=== PATIENT | female | born 1940 | race Caucasian/White ===

== ENCOUNTER 2019-02-25 18:00 | Emergency (ER) | payer SELFPAY ==
[2019-02-25 18:22] VITALS: BMI 43.9
[2019-02-25 20:02] LABS: BASO # 0.1 K/uL (0.0-0.2); BASO % 0.9 % (0.0-2.0); EOS # 0.2 K/uL (0.0-0.7); EOS % 2.9 % (0.0-4.0); HEMOGLOBIN 14.6 g/dL (11.0-16.0); LYMPH # 2.3 K/uL (1.0-4.3); LYMPH % 37.2 % (20.0-40.0); MEAN CELL VOLUME 94.2 fL (81.0-99.0); MEAN CORPUSCULAR HEMOGLOBIN 30.8 pg (27.0-31.0); MEAN CORPUSCULAR HGB CONC 32.7 g/dL (33.0-37.0); MEAN PLATELET VOLUME 11.9 fL (7.2-11.7); MONO # 0.3 K/uL (0.0-0.8); MONO % 5.2 % (0.0-10.0); NEUT # 3.4 K/uL (1.8-7.0); NEUT % 53.8 % (50.0-75.0); NRBC % 0.1 % (0.0-2.0); RBC 4.72 Mil/uL (3.80-5.20); RED CELL DISTRIBUTION WIDTH 15.3 % (11.5-14.5); WHITE BLOOD COUNT 6.2 K/uL (4.8-10.8)
[2019-02-25 20:19] LABS: URINE BACTERIA RARE (<OCC); URINE BILIRUBIN NEGATIVE (NEGATIVE); URINE BLOOD NEGATIVE (NEGATIVE); URINE CLARITY Clear (Clear); URINE COLOR Yellow (YELLOW); URINE GLUCOSE (UA) NORMAL (Normal); URINE LEUKOCYTE ESTERASE NEG Leu/uL (Negative); URINE PROTEIN NEGATIVE (NEGATIVE)
[2019-02-25 20:22] LABS: ALB/GLOB RATIO 1.3 (1.0-2.1); ALBUMIN 4.5 g/dL (3.5-5.0); ALT/SGPT 37 U/L (9-52); AST/SGOT 43 U/L (14-36); BLOOD UREA NITROGEN 15 mg/dL (7-17); CALCIUM 9.5 mg/dl (8.6-10.4); GFR NON-AFRICAN AMERICAN > 60
[2019-02-25 20:45] LABS: B-TYPE NATRIURETIC PEPTIDE 45.2 pg/mL (0-900)
[2019-02-25 20:53] VITALS: O2SAT 95
--- NOTE | 2019-02-25 21:06 | C.PDOC ---
History Of Present Illness Patient is a 78 year old female, who presents to the ED with her sister for evaluation of 2 episodes of vomiting that began earlier today. Patient reports persistent lower extremity edema. Patient is known to have borderline diabetes with no known home medications. Patient is a clinic patient. She denies any CP, SOB, diarrhea. Time Seen by Provider: 02/25/19 19:14 Chief Complaint (Nursing): GI Problem History Per: Patient History/Exam Limitations: no limitations Onset/Duration Of Symptoms: Hrs Current Symptoms Are (Timing): Still Present Recent travel outside of the [place]: No Additional History Per: Patient Past Medical History Reviewed: Historical Data, Nursing Documentation, Vital Signs Vital Signs: Last Vital Signs Temp 97.9 F 02/25/19 18:22 Pulse 78 02/25/19 20:52 Resp 18 02/25/19 20:52 BP 168/80 H 02/25/19 20:52 Pulse Ox 95 02/25/19 20:52 Primary Care Provider: FAMILY PROVIDER,NO - Medical History PMH: No Chronic Diseases Surgical History: No Surg Hx - [facility] Procedures REPLAC M/S IMMOB DEV NEC (03/08/13) Family History: States: No Known Family Hx - Social History Hx Alcohol Use: No Hx Substance Use: No - Immunization History Hx Tetanus Toxoid Vaccination: No Hx Influenza Vaccination: No Hx Pneumococcal Vaccination: No Review Of Systems Cardiovascular: Negative for: Chest Pain Gastrointestinal: Positive for: Vomiting. Negative for: Diarrhea Physical Exam - Physical Exam Appears: Non-toxic, No Acute Distress, Other (elderly female ) Skin: Warm, Dry Head: Atraumatic, Normacephalic Eye(s): bilateral: Other (right eye post-surgical, left eye normal) Oral Mucosa: Moist Neck: Normal ROM, Supple, No Other (JVD) Chest: Symmetrical Cardiovascular: Rhythm Regular, No Murmur Respiratory: Normal Breath Sounds, No Rales, No Rhonchi, No Wheezing Gastrointestinal/Abdominal: Soft, No Tenderness Extremity: Pedal Edema (2/4 pitting edema of lower extremities symmetrical. good peripheral pulses) Neurological/Psych: Oriented x3 ED Course And Treatment - Laboratory Results Result Diagrams: 02/25/19 19:53 02/25/19 19:53 Lab Results: Troponin I < 0.0120 ng/mL (0.00-0.120) 05/03/19 19:53 NT-Pro-B Natriuret Pep 45.2 pg/mL (0-900) 02/25/19 19:53 Total Bilirubin 0.6 mg/dL (0.2-1.3) 02/25/19 19:53 AST 43 U/L (14-36) H 02/25/19 19:53 ALT 37 U/L (9-52) 02/25/19 19:53 Alkaline Phosphatase 112 U/L (38-126) 02/25/19 19:53 Total Protein 8.1 g/dL (6.3-8.3) 02/25/19 19:53 Albumin 4.5 g/dL (3.5-5.0) 02/25/19 19:53 Globulin 3.6 gm/dL (2.2-3.9) 02/25/19 19:53 Albumin/Globulin Ratio 1.3 (1.0-2.1) 02/25/19 19:53 Urine Color Yellow (YELLOW) 02/25/19 19:53 Urine Clarity Clear (Clear) 02/25/19 19:53 Urine pH 5.0 (5.0-8.0) 02/25/19 19:53 Ur Specific Fifty Six 1.024 (1.003-1.030) 02/25/19 19:53 Urine Protein Negative mg/dL (NEGATIVE) 02/25/19 19:53 Urine Glucose (UA) Normal mg/dL (Normal) 02/25/19 19:53 Urine Ketones Negative mg/dL (NEGATIVE) 02/25/19 19:53 Urine Blood Negative (NEGATIVE) 02/25/19 19:53 Urine Nitrate Negative (NEGATIVE) 02/25/19 19:53 Urine Bilirubin Negative (NEGATIVE) 02/25/19 19:53 Urine Urobilinogen 2.0 mg/dL (0.2-1.0) H 02/25/19 19:53 Ur Leukocyte Esterase Neg Kirk/uL (Negative) 02/25/19 19:53 Urine WBC (Auto) 1 /hpf (0-5) 02/25/19 19:53 Urine RBC (Auto) < 1 /hpf (0-3) 02/25/19 19:53 Urine Bacteria Rare (<OCC) 02/25/19 19:53 Lab Interpretation: Normal (ua neg, trop/bnp neg) ECG: Interpreted By Me ECG Rhythm: Sinus Rhythm ECG Interpretation: Normal Rate From EC O2 Sat by Pulse Oximetry: 95 Pulse Ox Interpretation: Normal - Radiology CXR: Interpreted by Me CXR Interpretation: Yes: No Acute Disease Medical Decision Making Medical Decision Making: Plan: UA Labs EKG CXR Norvasc 5mg PO Pepcid 20mg IVP Lasix 20mg IVP Zofran 4mg IVP mild HTN no prior HTN meds start Norvasc 5 daily DM no prior meds glu 176 consider diet changes and opt f/u for meds PRN no new DM meds n/v relieved in ED normal eval ? viral no further tx required now Disposition Doctor Will See Patient In The: Office Counseled Patient/Family Regarding: Studies Performed, Diagnosis - Disposition Referrals: [facility] [Outside] [facility] [Outside] [facility] [Outside] [facility] [Outside] Disposition: HOME/ ROUTINE Disposition Time: 21:05 Condition: GOOD Additional Instructions: sigue Norvasc 5 mg diario para la pression lizzeth Sigue en la Clinica Diabetes: glucosa 176 (elevada moderada) Dieta diabetico NO hay medicamentos nuevos ahora. Sigue con la Clinica [place] para hacer rick Prescriptions: amLODIPine [Norvasc] 5 mg PO DAILY #30 tab Instructions: High Blood Pressure in Adults, Hyperglycemia, Adult Forms: [facility] (Arabic) Print Language: MOROCCAN - Clinical Impression Clinical Impression: Hypertension - Scribe Statement The provider has reviewed the documentation as recorded by the Scribrobel Balderas All medical record entries made by the Scribe were at my direction and personally dictated by me. I have reviewed the chart and agree that the record accurately reflects my personal performance of the history, physical exam, medical decision making, and the department course for this patient. I have also personally directed, reviewed, and agree with the discharge instructions and disposition.
[2019-02-25 21:50] VITALS: BP 156/88; PULSE 88; RESP 16; TEMP 98.7
--- NOTE | 2019-02-26 15:04 | RAD ---
Date of service: 02/25/2019 PROCEDURE: CHEST RADIOGRAPH, 1 VIEW HISTORY: SOB COMPARISON: Comparison is made with 01/31/2013 FINDINGS: LUNGS: Clear. PLEURA: No pneumothorax or pleural fluid seen. CARDIOVASCULAR: No aortic atherosclerotic calcification present. Normal. OSSEOUS STRUCTURES: No significant abnormalities. VISUALIZED UPPER ABDOMEN: Normal. OTHER FINDINGS: Mildly dilated left colon is noted in the left abdomen. IMPRESSION: No active disease.
--- NOTE | 2019-02-28 12:42 | CARD ---
APPROVED REPORT Date of service: 02/25/2019 EKG Measurement Heart [id number] <Conclusion> Normal sinus rhythm Possible Left atrial enlargement Left ventricular hypertrophy Abnormal ECG
== END 2019-02-25 21:30 | disposition home or self-care (01) ==
LOC: C.ER 18:00
DX: I10 Essential (primary) hypertension (principal)
CPT/HCPCS: 71045; 80053; 81001; 83880; 84484; 85025; 96374; 96375; 99285; J1940; J2405

== ENCOUNTER 2019-03-19 13:18 | Emergency (ER) | payer SELFPAY ==
[2019-03-19 13:19] VITALS: BMI 43.9
[2019-03-19 14:04] LABS: BASO % 0.8 % (0.0-2.0); EOS # 0.2 K/uL (0.0-0.7); EOS % 2.8 % (0.0-4.0); LYMPH # 1.4 K/uL (1.0-4.3); MEAN CELL VOLUME 92.9 fL (81.0-99.0); MEAN CORPUSCULAR HEMOGLOBIN 31.4 pg (27.0-31.0); MEAN CORPUSCULAR HGB CONC 33.8 g/dL (33.0-37.0); MEAN PLATELET VOLUME 11.3 fL (7.2-11.7); MONO # 0.3 K/uL (0.0-0.8); MONO % 4.4 % (0.0-10.0); NEUT # 4.1 K/uL (1.8-7.0); NRBC % 0.1 % (0.0-2.0); RBC 4.15 Mil/uL (3.80-5.20)
[2019-03-19 14:28] LABS: ALB/GLOB RATIO 1.1 (1.0-2.1); ALT/SGPT 49 U/L (9-52); AST/SGOT 44 U/L (14-36); B-TYPE NATRIURETIC PEPTIDE 67.6 pg/mL (0-900); BLOOD UREA NITROGEN 16 mg/dL (7-17); CALCIUM 9.6 mg/dl (8.6-10.4); GFR NON-AFRICAN AMERICAN > 60
[2019-03-19 14:29] LABS: PARTIAL THROMBOPLASTIN TIME 28.8 SECONDS (21-34); PROTHROMBIN TIME 11.2 SECONDS (9.7-12.2)
--- NOTE | 2019-03-19 14:38 | C.PDOC ---
History Of Present Illness 78 y.o. female presents from home for evaluation of SOB and lower extremity swelling. Pt is accompanied by family who is a poor historian. Pt reportedly has a "filter" for blood clots. Denies fever, chills, and any other associated symptoms. Offers no other medical complaints at this time. Time Seen by Provider: 03/19/19 13:27 Chief Complaint (Nursing): Shortness Of Breath History Per: Patient History/Exam Limitations: no limitations Onset/Duration Of Symptoms: Hrs Current Symptoms Are (Timing): Still Present Associated Symptoms: denies: Fever, Chills Recent travel outside of the [place]: No Past Medical History Reviewed: Historical Data, Nursing Documentation, Vital Signs Vital Signs: Last Vital Signs Temp 97.4 F L 03/19/19 13:37 Pulse 94 H 03/19/19 13:37 Resp 20 03/19/19 13:37 BP 172/88 H 03/19/19 13:37 Pulse Ox 96 03/19/19 13:37 Primary Care Provider: FAMILY PROVIDER,KATINA - [facility] Procedures REPLAC M/S IMMOB DEV NEC (03/08/13) Family History: States: Unknown Family Hx - Social History Hx Alcohol Use: No Hx Substance Use: No - Immunization History Hx Tetanus Toxoid Vaccination: No Hx Influenza Vaccination: No Hx Pneumococcal Vaccination: No Review Of Systems Except As Marked, All Systems Reviewed And Found Negative. Constitutional: Negative for: Fever, Chills Respiratory: Positive for: Shortness of Breath Musculoskeletal: Positive for: Other (lower extremity swelling. ) Physical Exam - Physical Exam Appears: Non-toxic, No Acute Distress Skin: Warm, Dry Head: Atraumatic, Normacephalic Eye(s): bilateral: Normal Inspection Oral Mucosa: Moist Neck: Normal ROM, Supple Chest: Symmetrical, No Deformity Cardiovascular: Rhythm Regular, No Murmur Respiratory: Normal Breath Sounds, No Rales, No Rhonchi, No Wheezing Gastrointestinal/Abdominal: Normal Exam, Soft, No Tenderness Extremity: Normal ROM, No Deformity, Swelling (bilateral leg swelling) Neurological/Psych: Oriented x3, Normal Speech, Normal Cognition ED Course And Treatment - Laboratory Results Result Diagrams: 03/19/19 14:01 03/19/19 14:01 Lab Results: PT 11.2 SECONDS (9.7-12.2) 03/19/19 14:01 INR 1.0 03/19/19 14:01 APTT 28.8 SECONDS (21-34) 03/19/19 14:01 Troponin I < 0.0120 ng/mL (0.00-0.120) 03/19/19 14:01 NT-Pro-B Natriuret Pep 67.6 pg/mL (0-900) 03/19/19 14:01 Total Bilirubin 0.6 mg/dL (0.2-1.3) 03/19/19 14:01 AST 44 U/L (14-36) H 03/19/19 14:01 ALT 49 U/L (9-52) 03/19/19 14:01 Alkaline Phosphatase 103 U/L (38-126) 03/19/19 14:01 Total Protein 7.8 g/dL (6.3-8.3) 03/19/19 14:01 Albumin 4.0 g/dL (3.5-5.0) 03/19/19 14: Globulin 3.7 gm/dL (2.2-3.9) 03/19/19 14:01 Albumin/Globulin Ratio 1.1 (1.0-2.1) 03/19/19 14:01 ECG: Interpreted By Me, Viewed By Me ECG Rhythm: Sinus Rhythm Interpretation Of ECG: no STQ wave changes Rate From EC O2 Sat by Pulse Oximetry: 96 (RA) Pulse Ox Interpretation: Normal - CT Scan/US Head CT Other Rad Studies (CT/US): Read By Radiologist CT/US Interpretation: FINDINGS: PULMONARY ARTERIES: Unremarkable. No pulmonary embolism. AORTA: Mild aneurysmal dilatation of the ascending thoracic aorta measures up to 3.5 centimeter in the transverse diameter is noted. Small aortic atherosclerotic calcification . LUNGS: Mild pulmonary vascular congestion noted. Mild bibasilar atelectasis. No evidence of pneumonia or suspicious mass in the lungs. PLEURAL SPACES: Unremarkable. No effusion or pneumothorax. HEA RT: The heart is mildly enlarged. No evidence of pericardial effusion. LYMPH NODES: No lymphadenopathy. BONES, CHEST WALL: Unremarkable. No fracture or destructive lesion. OTHER FINDINGS: Mildly dilated esophagus demonstrate mild diffuse wall thickening. IMPRESSION: No evidence of pulmonary embolus. Mild dilatation of the ascending thoracic aorta. Mild cardiomegaly and mild pulmonary vascular congestion. Mildly dilated esophagus demonstrate mild diffuse wall thickening. Correlate clinically for esophagitis. Medical Decision Making Medical Decision Making: ro dvt pe, arterial occlusion. Initial plan: -EKG -Blood sent. -CXR -Urinalysis -CT Angio Chest Progress/Update: Pt stable for discharge home. b/l legs cool to touch, (+)pulse on left, (+)doppler pulse on right. duplex neg. labs neg. abd soft no ttp. cta neg. abd soft no ttp. advsie outpt fu for ct fingind. Disposition - Disposition Referrals: [facility] [Outside] Disposition: HOME/ ROUTINE Disposition Time: 17:28 Condition: STABLE Instructions: Shortness of Breath (Dyspnea) (DC) Forms: [employer] (Sao Tomean) - Clinical Impression Clinical Impression: Dyspnea, Leg swelling - Scribe Statement The provider has reviewed the documentation as recorded by the Scribe (Florinda Gong) Provider Attestation: All medical record entries made by the Scribe were at my direction and personally dictated by me. I have reviewed the chart and agree that the record accurately reflects my personal performance of the history, physical exam, medical decision making, and the department course for this patient. I have also personally directed, reviewed, and agree with the discharge instructions and disposition.
[2019-03-19 14:56] LABS: URINE BILIRUBIN NEGATIVE (NEGATIVE); URINE BLOOD NEGATIVE (NEGATIVE); URINE CLARITY Clear (Clear); URINE COLOR Straw (YELLOW); URINE GLUCOSE (UA) NORMAL (Normal); URINE LEUKOCYTE ESTERASE NEG Leu/uL (Negative); URINE PROTEIN NEGATIVE (NEGATIVE); URINE UROBILINOGEN NORMAL mg/dL (0.2-1.0)
[2019-03-19] MEDS ORDERED: Iodixanol 320 MG/ML 100 ML BOTTLE IV ONE (15:24)
[2019-03-19] MEDS ORDERED: Albuterol-Ipratrop 3 mg / 0.5 (3 ml) UD ONE (16:20)
--- NOTE | 2019-03-19 17:25 | CT ---
Date of service: 03/19/2019 PROCEDURE: CT Chest with contrast (Pulmonary Angiogram) HISTORY: sob elevated dimer COMPARISON: None available. TECHNIQUE: Axial computed tomography images were obtained of the chest in the pulmonary arterial phase of enhancement. Coronal and sagittal reformatted images were created and reviewed. Intravenous contrast dose: 100 mL of Visipaque 320 intravenously. Radiation dose: Total exam DLP = 613.26 mGy-cm. This CT exam was performed using one or more of the following dose reduction techniques: Automated exposure control, adjustment of the mA and/or kV according to patient size, and/or use of iterative reconstruction technique. FINDINGS: PULMONARY ARTERIES: Unremarkable. No pulmonary embolism. AORTA: Mild aneurysmal dilatation of the ascending thoracic aorta measures up to 3.5 centimeter in the transverse diameter is noted. Small aortic atherosclerotic calcification . LUNGS: Mild pulmonary vascular congestion noted. Mild bibasilar atelectasis. No evidence of pneumonia or suspicious mass in the lungs. PLEURAL SPACES: Unremarkable. No effusion or pneumothorax. HEART: The heart is mildly enlarged. No evidence of pericardial effusion. LYMPH NODES: No lymphadenopathy. BONES, CHEST WALL: Unremarkable. No fracture or destructive lesion OTHER FINDINGS: Mildly dilated esophagus demonstrate mild diffuse wall thickening. IMPRESSION: No evidence of pulmonary embolus. Mild dilatation of the ascending thoracic aorta. Mild cardiomegaly and mild pulmonary vascular congestion. Mildly dilated esophagus demonstrate mild diffuse wall thickening. Correlate clinically for esophagitis.
--- NOTE | 2019-03-19 21:21 | RAD ---
Date of service: 03/19/2019 PROCEDURE: CHEST RADIOGRAPH, 1 VIEW HISTORY: chest pain COMPARISON: 02/25/2019 FINDINGS: LUNGS: Clear. PLEURA: No pneumothorax or pleural fluid seen. CARDIOVASCULAR: No aortic atherosclerotic calcification present. Normal. OSSEOUS STRUCTURES: No significant abnormalities. VISUALIZED UPPER ABDOMEN: Normal. OTHER FINDINGS: None. IMPRESSION: No active disease.
[2019-03-20 07:28] VITALS: RESP 20
[2019-03-20 09:46] VITALS: BP 147/80; PULSE 80; TEMP 98; O2SAT 100
--- NOTE | 2019-03-22 09:48 | VASCLAB ---
Date of service: 03/19/2019 PROCEDURE: Left Lower Extremity Venous Duplex Exam. HISTORY: leg swelling B/L LE Edema/Pain PRIORS: None. TECHNIQUE: Left common femoral, femoral, popliteal and posterior tibial, peroneal and great saphenous veins were evaluated. Flow was assessed with color Doppler, compressibility, assessment of phasic flow and augmentation response. Report prepared by Amilcar Vega, T FINDINGS: LEFT: 1. Common Femoral Vein: 1.1. Compressibility - Fully compressible: Thrombus - None : Flow - Phasic: Augmentation -Normal: Reflux - . 2. Femoral Vein: 2.1. Compressibility - Fully compressible: Thrombus - None: Flow - Phasic: Augmentation -Normal: Reflux - . 3. Popliteal Vein: 3.1. Compressibility - Fully compressible: Thrombus - None: Flow - Phasic: Augmentation -Normal: Reflux - . 4. Posterior Tibial Vein: 4.1. Compressibility - Fully compressible: Thrombus - None: Flow - Phasic: Augmentation -Normal: Reflux - . 5. Peroneal Vein: 5.1. Compressibility - Fully compressible: Thrombus - None: Flow - Phasic: Augmentation -Normal: Reflux - . 6. Great Saphenous Vein: 6.1. Compressibility - Fully compressible: Thrombus - None: Flow - Phasic: Augmentation - Normal: Reflux - . OTHER FINDINGS: Right: Tech Info only Left Lower extremity ordered only. There was No deep or superficial venous thrombosis noted and triphasic arterial flow noted throughout the entire lower extremity. Left: Triphasic arterial flow noted throughout the entire lower extremity IMPRESSION: No evidence of deep or superficial vein thrombosis of the left lower extremity with excellent venous flow. Normal venous flow noted in the right common femoral vein.
--- NOTE | 2019-03-23 00:04 | CARD ---
APPROVED REPORT Date of service: 03/19/2019 EKG Measurement Heart [id number] [id number] <Conclusion> Normal sinus rhythm Normal ECG
== END 2019-03-20 10:25 | disposition home or self-care (01) ==
LOC: C.ER 13:18
DX: R06.00 Dyspnea, unspecified (principal); M79.89 Other specified soft tissue disorders
CPT/HCPCS: 71045; 71275; 80053; 81001; 83880; 84484; 85025; 85378; 85610; 85730; 93971; 99285; Q9967